=== PATIENT | male | born 1945 | race Caucasian/White ===

== ENCOUNTER 2019-10-07 05:55 | Day surgery (SDC) | payer MEDICARE, OTHER ==
[2019-10-07] VITALS (19 sets, daily range): BP systolic 98–127; BP diastolic 42–83
[~2019-10-07] VITALS: Ht 172.7 cm; Wt 85.0 kg
[2019-10-07] MEDS ORDERED: MULT-955 PO (06:39)
[2019-10-07] MEDS ORDERED: TRIA1TAB92 PO (06:39)
[2019-10-07] MEDS ORDERED: folic acid PO (06:39)
[2019-10-07] MEDS ORDERED: SOTA80TA73 PO (06:39)
[2019-10-07] MEDS ORDERED: atropine 0.1mg/ml 10ml syringe IV ONE (06:40)
[2019-10-07] MEDS ORDERED: glycopyrrolate 0.2mg/ml inj IV ONE (06:40)
[2019-10-07] MEDS ORDERED: fentaNYL/PF 50MCG/1 ML 2ML syringe IV ONE (06:40)
[2019-10-07] MEDS ORDERED: MIDAZolam 5mg/ml 2ml vial IV ONE (06:40)
[2019-10-07 06:49] LABS: BASOPHILS # (AUTO) 0.1 X10'3 (0-0.2); BASOPHILS % (AUTO) 0.6 % (0-1); EOSINOPHILS # (AUTO) 0.2 X10'3 (0-0.9); EOSINOPHILS % (AUTO) 2.2 % (0-6); HEMATOCRIT 54.3 % (42.0-52.0); LYMPHOCYTES # (AUTO) 1.2 X10'3 (1.1-4.8); LYMPHOCYTES % (AUTO) 12.4 % (21-51); MEAN CORPUSCULAR HEMOGLOBIN 30.7 PG (27.0-31.0); MEAN CORPUSCULAR HGB CONC 33.9 g/dL (33.0-36.5); MEAN CORPUSCULAR VOLUME 90.3 FL (78-98); MEAN PLATELET VOLUME 8.2 FL (7.4-10.4); MONOCYTES # (AUTO) 0.8 X10'3 (0-0.9); MONOCYTES % (AUTO) 8.3 % (2-12); NEUTROPHILS # (AUTO) 7.3 X10'3 (1.8-7.7); NEUTROPHILS % (AUTO) 76.5 % (42-75); PLATELET COUNT 201 X10'3 (140-440); RED BLOOD COUNT 6.01 X10'6 (4.70-6.10); RED CELL DISTRIBUTION WIDTH 13.5 % (11.5-14.5); WHITE BLOOD COUNT 9.5 X10'3 (4.5-11.0)
[2019-10-07 06:57] LABS: ALBUMIN 4.1 G/DL (3.4-5.0); ANION GAP 8 (8-16); BLOOD UREA NITROGEN 24 MG/DL (7-18); BUN/CREATININE RATIO 19.2 (5.4-32.0); CHLORIDE 102 MMOL/L (99-107); CREATININE 1.25 MG/DL (0.60-1.10); GLUCOSE 135 MG/DL (70-104); POTASSIUM 3.3 MMOL/L (3.5-5.1); SODIUM 141 MMOL/L (135-145); TOTAL CARBON DIOXIDE 31.4 MMOL/L (24-32); eGFR 56 ML/MIN
[2019-10-07 06:58] LABS: HEMOGLOBIN 18.4 g/dl (14.0-17.9)
[2019-10-07] MEDS ORDERED: pneumococcal 23-VAL P-sac vacc 25 mcg/0.5ml vial IMVAC ONE (07:35)
[2019-10-07] MEDS ORDERED: FLU VACC QS2019-20 36MOS UP/PF 60 MCG/0.5 ML SYRINGE IMVAC ONE (07:35)
== END 2019-10-07 12:00 | disposition home or self-care (01) ==
LOC: SSTAY O 05:55
PROVIDERS: ATTEND Internal Medicine Cardiovascular Disease
DX: I48.91 Unspecified atrial fibrillation (principal); I08.0 Rheumatic disorders of both mitral and aortic valves; I10 Essential (primary) hypertension; I25.10 Atherosclerotic heart disease of native coronary artery without angina pectoris; I27.29 Other secondary pulmonary hypertension; E78.00 Pure hypercholesterolemia, unspecified; Z95.1 Presence of aortocoronary bypass graft; Z79.899 Other long term (current) drug therapy; Z88.8 Allergy status to other drugs, medicaments and biological substances; Z23 Encounter for immunization
CPT/HCPCS: 36415; 80048; 83735; 85025; 85610; 90471; 90732; 92960; 93005; 93312; J0461; J2250; J3010; Q2037; J3490

== ENCOUNTER 2020-02-11 09:07 | Day surgery (SDC) | payer MEDICARE, OTHER ==
[2020-02-11] VITALS (10 sets, daily range): BP systolic 96–125; BP diastolic 53–81
[~2020-02-11] VITALS: Ht 172.7 cm; Wt 82.2 kg
[~2020-02-11 09:07] MED LIST: MULT-955 PO; SOTA80TA73 PO; TRIA1TAB92 PO; folic acid PO
[2020-02-11] MEDS ORDERED: normal saline 1,000 ML IV SCH ×2 (09:30→11:50)
[2020-02-11] MEDS ORDERED: diphenhydrAMINE 25mg capsule PO PRN (09:30)
[2020-02-11] MEDS ORDERED: LIDOcaine 1% (10mg/ml)w/preservative injection 20ml MDV ONE (09:54)
[2020-02-11] MEDS ORDERED: iohexol 350MG/ML 100ml bottle IV ONE ×2 (09:55→10:56)
[2020-02-11] MEDS ORDERED: heparin 1,000unit/ml 10ml vial 10 ML ONE ×2 (09:55→10:56)
[2020-02-11] MEDS ORDERED: iohexol 350 MG/ML 50ML vial IV ONE ×2 (09:55→10:49)
[2020-02-11] MEDS ORDERED: METO25TA6 PO (10:13)
[2020-02-11] MEDS ORDERED: ISOS30TA6 PO (10:13)
[2020-02-11] MEDS ORDERED: AMIO200T61 PO (10:13)
[2020-02-11] MEDS ORDERED: fentaNYL/PF 50MCG/1 ML 2ML syringe ONE (10:19)
[2020-02-11] MEDS ORDERED: proCHLORperazine 10 MG/2 ml inj ONE (10:19)
[2020-02-11] MEDS ORDERED: midazolam 2 mg/2 ml injection ONE (10:19)
[2020-02-11 10:30] LABS: BASOPHILS # (AUTO) 0.1 X10'3 (0-0.2); BASOPHILS % (AUTO) 0.6 % (0-1); EOSINOPHILS # (AUTO) 0.1 X10'3 (0-0.9); EOSINOPHILS % (AUTO) 1.2 % (0-6); HEMATOCRIT 47.9 % (42.0-52.0); HEMOGLOBIN 15.8 g/dl (14.0-17.9); LYMPHOCYTES # (AUTO) 0.9 X10'3 (1.1-4.8); LYMPHOCYTES % (AUTO) 11.3 % (21-51); MEAN CORPUSCULAR HEMOGLOBIN 30.4 PG (27.0-31.0); MEAN CORPUSCULAR HGB CONC 32.9 g/dL (33.0-36.5); MEAN CORPUSCULAR VOLUME 92.3 FL (78-98); MEAN PLATELET VOLUME 8.4 FL (7.4-10.4); MONOCYTES # (AUTO) 0.8 X10'3 (0-0.9); MONOCYTES % (AUTO) 10.4 % (2-12); NEUTROPHILS % (AUTO) 76.5 % (42-75); PLATELET COUNT 181 X10'3 (140-440); RED BLOOD COUNT 5.19 X10'6 (4.70-6.10); RED CELL DISTRIBUTION WIDTH 14.4 % (11.5-14.5); WHITE BLOOD COUNT 7.9 X10'3 (4.5-11.0)
[2020-02-11 10:32] LABS: ALBUMIN 3.6 G/DL (3.4-5.0); ANION GAP 8 (8-16); BLOOD UREA NITROGEN 26 MG/DL (7-18); BUN/CREATININE RATIO 17.1 (5.4-32.0); CALCIUM 8.8 MG/DL (8.5-10.1); CHLORIDE 108 MMOL/L (99-107); CREATININE 1.52 MG/DL (0.60-1.10); GLUCOSE 108 MG/DL (70-104); MAGNESIUM 2.3 MG/DL (1.5-2.4); POTASSIUM 3.4 MMOL/L (3.5-5.1); SODIUM 145 MMOL/L (135-145); eGFR 45 ML/MIN
[2020-02-11] MEDS ORDERED: atropine 0.1mg/ml 10ml syringe ONE (11:02)
[2020-02-11] MEDS ORDERED: phenylephrine 10mg/ml inj. ONE (11:03)
[2020-02-11] MEDS ORDERED: HYDROcodone/acetaminophen 5mg/325mg tablet PO PRN (11:50)
[2020-02-11] MEDS ORDERED: ondansetron/PF 4mg/2ml inj IV PRN (11:50)
[2020-02-11] MEDS ORDERED: HYDROcodone/acetaminophen 10/325mg tab PO PRN (11:55)
[2020-02-11] MEDS ORDERED: proCHLORperazine 10 MG/2 ml inj IV PRN (11:55)
== END 2020-02-11 14:30 | disposition home or self-care (01) ==
LOC: U 09:07 → MED 3N 09:07 → U 14:30
PROVIDERS: ATTEND Internal Medicine Cardiovascular Disease
DX: R07.89 Other chest pain (principal); I25.10 Atherosclerotic heart disease of native coronary artery without angina pectoris; E78.00 Pure hypercholesterolemia, unspecified; I10 Essential (primary) hypertension; I42.8 Other cardiomyopathies; I48.91 Unspecified atrial fibrillation; Z79.899 Other long term (current) drug therapy; Z88.8 Allergy status to other drugs, medicaments and biological substances; Z98.890 Other specified postprocedural states
CPT/HCPCS: 36415; 80048; 83735; 85025; 85610; 93005; 93459; 99152; 99153; C1769; C1894; J0461; J0780; J1644; J2001; J2250; J2370; J3010; J7030; Q9967; A4620; A6258; C1751; C1760

== ENCOUNTER 2021-01-15 09:18 | Day surgery (SDC) | payer MEDICARE, OTHER ==
[~2021-01-15] VITALS: Ht 177.8 cm; Wt 78.9 kg
[2021-01-15] VITALS (14 sets, daily range): BP systolic 96–136; BP diastolic 60–89
[~2021-01-15 09:18] MED LIST changes: +AMIO200T61 PO; +ISOS30TA84 PO; +METO25TA6 PO; -SOTA80TA73 PO
[2021-01-15] MEDS ORDERED: MIDAZolam 1mg/ml 10ml vial IV ONE (09:45)
[2021-01-15] MEDS ORDERED: fentaNYL/PF 50MCG/1 ML 2ML syringe IV ONE (09:45)
[2021-01-15] MEDS ORDERED: normal saline 1000ml 1,000 ML IV SCH (09:45)
[2021-01-15] MEDS ORDERED: glycopyrrolate 0.2mg/ml inj IV ONE (09:45)
[2021-01-15] MEDS ORDERED: OMEG-55 PEG (09:58)
[2021-01-15] MEDS ORDERED: VITA-268 PO (09:58)
[2021-01-15] MEDS ORDERED: METO-395 PO (09:58)
[2021-01-15 10:37] LABS: BASOPHILS # (AUTO) 0.1 X10'3 (0-0.2); BASOPHILS % (AUTO) 0.8 % (0-1); EOSINOPHILS # (AUTO) 0.1 X10'3 (0-0.9); EOSINOPHILS % (AUTO) 1.8 % (0-6); LYMPHOCYTES % (AUTO) 12.3 % (21-51); MEAN CORPUSCULAR HGB CONC 33.2 g/dL (33.0-36.5); MEAN CORPUSCULAR VOLUME 90.3 FL (78-98); MEAN PLATELET VOLUME 8.3 FL (7.4-10.4); MONOCYTES # (AUTO) 0.8 X10'3 (0-0.9); MONOCYTES % (AUTO) 9.8 % (2-12); NEUTROPHILS # (AUTO) 5.8 X10'3 (1.8-7.7); NEUTROPHILS % (AUTO) 75.3 % (42-75); PLATELET COUNT 175 X10'3 (140-440); RED BLOOD COUNT 5.32 X10'6 (4.70-6.10); WHITE BLOOD COUNT 7.8 X10'3 (4.5-11.0)
[2021-01-15 10:47] LABS: ALBUMIN 3.5 G/DL (3.4-5.0); ANION GAP 8 (8-16); BLOOD UREA NITROGEN 35 MG/DL (7-18); BUN/CREATININE RATIO 21.5 (5.4-32.0); CALCIUM 8.7 MG/DL (8.5-10.1); CHLORIDE 107 MMOL/L (99-107); CREATININE 1.63 MG/DL (0.60-1.10); GLUCOSE 101 MG/DL (70-104); MAGNESIUM 2.1 MG/DL (1.5-2.4); POTASSIUM 3.7 MMOL/L (3.5-5.1); SODIUM 143 MMOL/L (135-145); TOTAL CARBON DIOXIDE 28.4 MMOL/L (24-32); eGFR 41 ML/MIN
== END 2021-01-15 14:30 | disposition home or self-care (01) ==
LOC: SSTAY O 09:18 → EDSTATUS 11:00 → SSTAY O 14:30
PROVIDERS: ATTEND Internal Medicine Cardiovascular Disease
DX: I48.91 Unspecified atrial fibrillation (principal); I34.2 Nonrheumatic mitral (valve) stenosis; I42.9 Cardiomyopathy, unspecified
CPT/HCPCS: 36415; 80048; 83735; 85025; 85610; 92960; 93005; 93312; 93325; 94799; J2250; J3010; J7030; J3490

== ENCOUNTER 2021-01-18 21:30 | Emergency (ER) | payer MEDICARE, OTHER ==
[~2021-01-18] VITALS: Ht 172.7 cm; Wt 79.1 kg
[~2021-01-18 21:30] MED LIST changes: -ISOS30TA84 PO; +METO-395 PO; -METO25TA6 PO; +OMEG-55 PEG; +VITA-268 PO
[2021-01-18] MEDS ORDERED: aspirin 81mg tab.chew PO ONE (21:35)
[2021-01-18 22:08] LABS: BASOPHILS # (AUTO) 0.1 X10'3 (0-0.2); EOSINOPHILS # (AUTO) 0.2 X10'3 (0-0.9); EOSINOPHILS % (AUTO) 2.3 % (0-6); HEMATOCRIT 49.5 % (42.0-52.0); HEMOGLOBIN 16.3 g/dl (14.0-17.9); LYMPHOCYTES # (AUTO) 1.1 X10'3 (1.1-4.8); LYMPHOCYTES % (AUTO) 12.7 % (21-51); MEAN CORPUSCULAR HGB CONC 32.8 g/dL (33.0-36.5); MEAN CORPUSCULAR VOLUME 91.3 FL (78-98); MEAN PLATELET VOLUME 8.3 FL (7.4-10.4); MONOCYTES # (AUTO) 0.8 X10'3 (0-0.9); MONOCYTES % (AUTO) 8.5 % (2-12); NEUTROPHILS # (AUTO) 6.7 X10'3 (1.8-7.7); NEUTROPHILS % (AUTO) 75.5 % (42-75); PLATELET COUNT 167 X10'3 (140-440); RED BLOOD COUNT 5.42 X10'6 (4.70-6.10); RED CELL DISTRIBUTION WIDTH 14.1 % (11.5-14.5); WHITE BLOOD COUNT 8.9 X10'3 (4.5-11.0)
[2021-01-18 22:14] LABS: PARTIAL THROMBOPLASTIN TIME 29 SECONDS (22-32)
[2021-01-18 22:17] LABS: ALANINE AMINOTRANSFERASE 27 U/L (12-78); ALBUMIN 3.7 G/DL (3.4-5.0); ALBUMIN/GLOBULIN RATIO 1.2 (1.1-1.5); ALKALINE PHOSPHATASE 119 IU/L (46-116); ANION GAP 8 (8-16); ASPARTATE AMINO TRANSFERASE 21 U/L (10-37); BILIRUBIN,TOTAL 0.9 MG/DL (0.1-1.0); BLOOD UREA NITROGEN 28 MG/DL (7-18); BUN/CREATININE RATIO 19.3 (5.4-32.0); CALCIUM 8.7 MG/DL (8.5-10.1); CHLORIDE 105 MMOL/L (99-107); CREATININE 1.45 MG/DL (0.60-1.10); GLUCOSE 115 MG/DL (70-104); POTASSIUM 3.8 MMOL/L (3.5-5.1); SODIUM 142 MMOL/L (135-145); TOTAL CARBON DIOXIDE 29.5 MMOL/L (24-32); TOTAL PROTEIN 6.8 G/DL (6.4-8.2); eGFR 47 ML/MIN
[2021-01-18 22:25] LABS: MAGNESIUM 2.2 MG/DL (1.5-2.4); TROPONIN I < 0.04 NG/ML (0.0-0.05)
[2021-01-18 23:09] VITALS: BP 131/81
== END 2021-01-18 23:10 | disposition home or self-care (01) ==
LOC: ER 21:30
DX: R00.2 Palpitations (principal); R06.02 Shortness of breath; I10 Essential (primary) hypertension; Z86.73 Personal history of transient ischemic attack (TIA), and cerebral infarction without residual deficits; Z95.1 Presence of aortocoronary bypass graft; Z98.890 Other specified postprocedural states; Z79.899 Other long term (current) drug therapy
CPT/HCPCS: 36415; 71045; 80053; 83735; 83880; 84484; 85025; 85610; 85730; 93005; 99285

== ENCOUNTER 2021-08-20 12:31 | Emergency (ER) | payer MEDICARE, OTHER ==
[~2021-08-20] VITALS: Ht 175.3 cm; Wt 77.3 kg
[2021-08-20] MEDS ORDERED: morphine 4 MG/ML inj SYRINge IM ONE (18:45)
[2021-08-20] MEDS ORDERED: ondansetron 4mg rapidly disintigrating tab PO ONE (18:45)
[2021-08-20 18:50] VITALS: BP 119/84
[2021-08-20] MEDS ORDERED: ACET-1025 PO (19:01)
[2021-08-27] MEDS ORDERED: HYDR-3965 PO (17:32)
== END 2021-08-20 19:28 | disposition home or self-care (01) ==
LOC: ER 12:32
DX: S39.012A Strain of muscle, fascia and tendon of lower back, initial encounter (principal); M79.644 Pain in right finger(s); R22.32 Localized swelling, mass and lump, left upper limb; I10 Essential (primary) hypertension; Z86.73 Personal history of transient ischemic attack (TIA), and cerebral infarction without residual deficits; Z95.5 Presence of coronary angioplasty implant and graft; Z79.899 Other long term (current) drug therapy; W19.XXXA Unspecified fall, initial encounter; Y93.89 Activity, other specified; Y92.89 Other specified places as the place of occurrence of the external cause; Y99.8 Other external cause status
CPT/HCPCS: 73130; 96372; 99284; J2270

== ENCOUNTER → 2021-08-27 | Emergency (ER) | payer MEDICARE, OTHER ==
[~2021-08-27] VITALS: Ht 172.7 cm; Wt 77.3 kg
[~2021-08-27] MED LIST changes: +ACET-1025 PO; +HYDR-3965 PO
[2021-08-27 15:17] VITALS: BP 117/68
== END | disposition home or self-care (01) ==
LOC: ER 15:09
DX: S32.020A Wedge compression fracture of second lumbar vertebra, initial encounter for closed fracture (principal); I10 Essential (primary) hypertension; Z86.73 Personal history of transient ischemic attack (TIA), and cerebral infarction without residual deficits; Z95.5 Presence of coronary angioplasty implant and graft; Z79.899 Other long term (current) drug therapy; W18.30XA Fall on same level, unspecified, initial encounter; Y93.89 Activity, other specified; Y92.89 Other specified places as the place of occurrence of the external cause; Y99.8 Other external cause status
CPT/HCPCS: 72131; 72170; 99284

== ENCOUNTER 2023-01-03 08:22 | Day surgery (SDC) | payer MEDICARE, OTHER ==
[2023-01-03] VITALS (18 sets, daily range): BP systolic 104–135; BP diastolic 57–81
[~2023-01-03] VITALS: Ht 177.8 cm; Wt 79.8 kg
[~2023-01-03 08:22] MED LIST changes: -ACET-1025 PO; -HYDR-3965 PO
[2023-01-03] MEDS ORDERED: MIDAZolam 1mg/ml 10ml vial IV ONE (09:05)
[2023-01-03] MEDS ORDERED: fentaNYL/PF 50MCG/1 ML 2ML syringe IV ONE (09:05)
[2023-01-03] MEDS ORDERED: normal saline 1000ml 1,000 ML IV SCH (09:05)
[2023-01-03 09:42] LABS: BASOPHILS # (AUTO) 0.1 X10'3 (0-0.2); BASOPHILS % (AUTO) 1.5 % (0-1); EOSINOPHILS # (AUTO) 0.2 X10'3 (0-0.9); EOSINOPHILS % (AUTO) 2.2 % (0-6); HEMATOCRIT 45.9 % (42.0-52.0); HEMOGLOBIN 15.1 g/dl (14.0-17.9); LYMPHOCYTES # (AUTO) 0.9 X10'3 (1.1-4.8); LYMPHOCYTES % (AUTO) 12.8 % (21-51); MEAN CORPUSCULAR HEMOGLOBIN 30.1 PG (27.0-31.0); MEAN CORPUSCULAR HGB CONC 32.9 g/dL (33.0-36.5); MEAN CORPUSCULAR VOLUME 91.4 FL (78-98); MEAN PLATELET VOLUME 8.1 FL (7.4-10.4); MONOCYTES # (AUTO) 0.7 X10'3 (0-0.9); MONOCYTES % (AUTO) 9.5 % (2-12); NEUTROPHILS # (AUTO) 5.5 X10'3 (1.8-7.7); PLATELET COUNT 171 X10'3 (140-440); RED BLOOD COUNT 5.02 X10'6 (4.70-6.10); RED CELL DISTRIBUTION WIDTH 14.3 % (11.5-14.5); WHITE BLOOD COUNT 7.4 X10'3 (4.5-11.0)
[2023-01-03] MEDS ORDERED: NITR0.4T51 SL (10:07)
[2023-01-03] MEDS ORDERED: CITA-116 PO (10:07)
[2023-01-03 10:10] LABS: ALBUMIN 3.7 G/DL (3.4-5.0); ANION GAP 10 (8-16); BLOOD UREA NITROGEN 34 MG/DL (7-18); BUN/CREATININE RATIO 22.5 (5.4-32.0); CALCIUM 8.4 MG/DL (8.5-10.1); CHLORIDE 106 MMOL/L (99-107); CREATININE 1.51 MG/DL (0.60-1.10); GLUCOSE 105 MG/DL (70-104); MAGNESIUM 2.3 MG/DL (1.5-2.4); POTASSIUM 3.3 MMOL/L (3.5-5.1); SODIUM 145 MMOL/L (135-145); TOTAL CARBON DIOXIDE 29.1 MMOL/L (24-32); eGFR 45 ML/MIN
== END 2023-01-03 13:50 | disposition home or self-care (01) ==
LOC: SSTAY O 08:22
PROVIDERS: ATTEND Internal Medicine Cardiovascular Disease
DX: I48.4 Atypical atrial flutter (principal); I44.0 Atrioventricular block, first degree; I25.10 Atherosclerotic heart disease of native coronary artery without angina pectoris; E78.5 Hyperlipidemia, unspecified; I10 Essential (primary) hypertension; E78.00 Pure hypercholesterolemia, unspecified; H81.09 Meniere's disease, unspecified ear; Z95.1 Presence of aortocoronary bypass graft; Z87.442 Personal history of urinary calculi; Z79.899 Other long term (current) drug therapy; Z98.890 Other specified postprocedural states; Z88.8 Allergy status to other drugs, medicaments and biological substances
CPT/HCPCS: 36415; 80048; 83735; 85025; 85610; 92960; 93005; J2250; J3010; J7030; A4620